=== PATIENT | male | born 1960 | race Caucasian/White ===

== ENCOUNTER 2017-08-29 08:39 | Inpatient (IN) | payer MEDICAID ==
[~2017-08-29] VITALS: Ht 177.8 cm; Wt 104.8 kg
[2017-08-29 09:57] VITALS: BP 92/60
[2017-08-29] MEDS ORDERED: FOL1 GT (10:06)
[2017-08-29] MEDS ORDERED: PEPCID20 MG GT (10:07)
[2017-08-29] MEDS ORDERED: ATRUD HHN (10:08)
[2017-08-29] MEDS ORDERED: MOM GT (10:09)
[2017-08-29] MEDS ORDERED: MULTI-VITAMINS1 TAB GT (10:10)
[2017-08-29] MEDS ORDERED: MODAFINIL200 M1 GT (10:10)
[2017-08-29] MEDS ORDERED: PHARMASSURE VI500 MG GT (10:11)
[2017-08-29] MEDS ORDERED: FLEET ENEMA135 ML RC (10:12)
[2017-08-29] MEDS ORDERED: DULCOLAX10 M1 RC (10:13)
[2017-08-29] MEDS ORDERED: COLACE100 MG GT (10:13)
[2017-08-29] MEDS ORDERED: NORCO1 TA2 GT (10:21)
[2017-08-29 10:33] LABS: UA SPECIFIC GRAVITY <=1.005 (1.005-1.035); microscopic required? YES; urine erythrocyte 1+ (NEGATIVE)
[2017-08-29 10:42] LABS: AMPHETAMINE QUAL UR NONE DETECTED (NEG <=1000)
[2017-08-29 11:41] LABS: T3 TOTAL 0.35 ng/mL
[2017-08-29 11:59] LABS: MAGNESIUM 3.4 mg/dL (1.8-2.4); PHOSPHOROUS 3.2 mg/dL (2.5-4.9)
[2017-08-29 12:01] LABS: CHOLESTEROL/HDL RATIO 4.5
[2017-08-29 12:30] VITALS: BP 85/62
[2017-08-29 12:34] LABS: FREE T4 1.1 ng/dL (0.76-1.46); FREE THYROXINE INDEX 2.6 ug/dL (1.4-4.5); T4(THYROXINE) 6.6 ug/dL (4.7-13.3)
[2017-08-29 12:54] LABS: BILIRUBIN TOTAL 0.47 mg/dL (0.20-1.00); CALCIUM 8.3 mg/dL (8.5-10.1); CARBON DIOXIDE 25.3 mmol/L (21-32); CREATININE SERUM 3.1 mg/dL (0.7-1.3); POTASSIUM SERUM 5.5 mmol/L (3.5-5.1); TOTAL PROTEIN, SERUM 7.1 g/dL (6.4-8.2)
[2017-08-29 12:56] LABS: ALBUMIN 1.8 g/dL (3.4-5.0)
[2017-08-29 14:10] VITALS: BP 85/62
[2017-08-29 16:00] VITALS: BP 92/56
[2017-08-29 19:30] VITALS: BP 98/65
[2017-08-29 23:53] VITALS: BP 91/59
[2017-08-30 03:17] VITALS: BP 82/56
[2017-08-30 06:14] LABS: BASOPHIL % 0.2 % (0-2); PLATELET COUNT 79 x10^3mcL (130-400); RED CELL DISTRIBUTION WIDTH 16.5 % (11.5-14.5)
[2017-08-30 06:17] LABS: CALCIUM 8.3 mg/dL (8.5-10.1); CARBON DIOXIDE 23.3 mmol/L (21-32); CREATININE SERUM 2.7 mg/dL (0.7-1.3); MAGNESIUM 3.1 mg/dL (1.8-2.4); PHOSPHOROUS 4.1 mg/dL (2.5-4.9)
[2017-08-30 08:15] VITALS: BP 92/55
[2017-08-30 11:00] VITALS: BP 95/60
[2017-08-30 15:20] VITALS: BP 95/55
[2017-08-30 19:37] LABS: CALCIUM 7.9 mg/dL (8.5-10.1); CARBON DIOXIDE 24.6 mmol/L (21-32); CREATININE SERUM 2.4 mg/dL (0.7-1.3); POTASSIUM SERUM 3.2 mmol/L (3.5-5.1)
[2017-08-30 19:50] VITALS: BP 90/68
[2017-08-30 23:50] VITALS: BP 91/57
[2017-08-31 03:55] VITALS: BP 87/55
[2017-08-31 05:48] LABS: BASOPHIL % 0.3 % (0-2); PLATELET COUNT 68 x10^3mcL (130-400); RED CELL DISTRIBUTION WIDTH 15.9 % (11.5-14.5)
[2017-08-31 05:50] LABS: CALCIUM 8.2 mg/dL (8.5-10.1); CARBON DIOXIDE 25.6 mmol/L (21-32); CREATININE SERUM 2.2 mg/dL (0.7-1.3); MAGNESIUM 2.6 mg/dL (1.8-2.4); PHOSPHOROUS 3.4 mg/dL (2.5-4.9); POTASSIUM SERUM 3.4 mmol/L (3.5-5.1); rbc morphology (normal/abnorm) ABNORMAL (NORMAL)
[2017-08-31 07:30] VITALS: BP 103/63
[2017-08-31 12:41] LABS: BASOPHIL % 0.2 % (0-2)
[2017-08-31 12:44] LABS: PLATELET COUNT 50 x10^3mcL (130-400); RED CELL DISTRIBUTION WIDTH 15.8 % (11.5-14.5)
[2017-08-31 15:29] LABS: BASOPHIL % 0.3 % (0-2)
[2017-08-31 15:30] VITALS: BP 94/61
[2017-08-31 15:53] LABS: PLATELET COUNT 51 x10^3mcL (130-400); RED CELL DISTRIBUTION WIDTH 15.5 % (11.5-14.5)
[2017-08-31 18:31] LABS: rbc morphology (normal/abnorm) ABNORMAL (NORMAL)
[2017-08-31 19:35] VITALS: BP 110/62
[2017-08-31 23:41] VITALS: BP 97/62
[2017-09-01 03:18] VITALS: BP 92/66
[2017-09-01 05:39] LABS: CALCIUM 7.9 mg/dL (8.5-10.1); CARBON DIOXIDE 23.3 mmol/L (21-32); CREATININE SERUM 1.9 mg/dL (0.7-1.3); POTASSIUM SERUM 3.2 mmol/L (3.5-5.1)
[2017-09-01 05:43] LABS: BASOPHIL % 0.2 % (0-2)
[2017-09-01 05:44] LABS: PLATELET COUNT 50 x10^3mcL (130-400); RED CELL DISTRIBUTION WIDTH 15.3 % (11.5-14.5)
[2017-09-01 05:48] LABS: rbc morphology (normal/abnorm) ABNORMAL (NORMAL)
[2017-09-01 08:27] VITALS: BP 97/57
[2017-09-01 11:14] VITALS: BP 90/55
[2017-09-01 15:47] VITALS: BP 94/64
[2017-09-01 19:15] VITALS: BP 94/59
[2017-09-01 23:28] VITALS: BP 92/59
[2017-09-02] VITALS (8 sets, daily range): BP systolic 92–109; BP diastolic 57–72
[2017-09-02 05:22] LABS: CALCIUM 8.1 mg/dL (8.5-10.1); CARBON DIOXIDE 23.3 mmol/L (21-32); CREATININE SERUM 1.7 mg/dL (0.7-1.3); POTASSIUM SERUM 3.6 mmol/L (3.5-5.1)
[2017-09-02 05:23] LABS: BASOPHIL % 0.2 % (0-2)
[2017-09-02 05:39] LABS: RED CELL DISTRIBUTION WIDTH 15.6 % (11.5-14.5)
[2017-09-02 06:01] LABS: rbc morphology (normal/abnorm) ABNORMAL (NORMAL)
[2017-09-02 06:15] LABS: PLATELET COUNT 49 x10^3mcL (130-400)
[2017-09-02 19:15] LABS: BASOPHIL % 0.2 % (0-2)
[2017-09-02 19:22] LABS: RED CELL DISTRIBUTION WIDTH 15.5 % (11.5-14.5)
[2017-09-02 19:23] LABS: PLATELET COUNT 46 x10^3mcL (130-400)
[2017-09-03] VITALS (8 sets, daily range): BP systolic 85–103; BP diastolic 55–69
[2017-09-03 06:06] LABS: CALCIUM 7.8 mg/dL (8.5-10.1); CARBON DIOXIDE 22.7 mmol/L (21-32); CREATININE SERUM 1.6 mg/dL (0.7-1.3); MAGNESIUM 1.8 mg/dL (1.8-2.4); PHOSPHOROUS 3.8 mg/dL (2.5-4.9); POTASSIUM SERUM 3.2 mmol/L (3.5-5.1)
[2017-09-03 06:07] LABS: PLATELET COUNT 56 x10^3mcL (130-400); RED CELL DISTRIBUTION WIDTH 15.6 % (11.5-14.5)
[2017-09-03 07:57] LABS: BAND NEUTROPHIL 9 % (0-10); BASOPHIL 0 % (0-2); METAMYELOCTE 1 % (0-2); MONOCYTE 3 % (0-7); SEGMENTED NEUTROPHILS 78 % (37-75)
[2017-09-03 08:01] LABS: PLATELET MORPHOLOGY PLATELETS DECREASED; rbc morphology (normal/abnorm) ABNORMAL (NORMAL)
[2017-09-04] VITALS (7 sets, daily range): BP systolic 83–109; BP diastolic 53–61
[2017-09-04 07:01] LABS: CALCIUM 7.7 mg/dL (8.5-10.1); CARBON DIOXIDE 22.3 mmol/L (21-32); CREATININE SERUM 1.6 mg/dL (0.7-1.3); MAGNESIUM 1.7 mg/dL (1.8-2.4); PHOSPHOROUS 3.6 mg/dL (2.5-4.9)
[2017-09-04 07:09] LABS: BASOPHIL % 0.1 % (0-2)
[2017-09-04 07:10] LABS: RED CELL DISTRIBUTION WIDTH 15.1 % (11.5-14.5)
[2017-09-04 08:59] LABS: PLATELET COUNT 39 x10^3mcL (130-400); rbc morphology (normal/abnorm) ABNORMAL (NORMAL)
[2017-09-05] VITALS (7 sets, daily range): BP systolic 90–128; BP diastolic 44–61
[2017-09-05 06:13] LABS: CALCIUM 7.8 mg/dL (8.5-10.1); CARBON DIOXIDE 20.8 mmol/L (21-32); CREATININE SERUM 1.6 mg/dL (0.7-1.3); MAGNESIUM 1.6 mg/dL (1.8-2.4); POTASSIUM SERUM 4.1 mmol/L (3.5-5.1)
[2017-09-05 07:08] LABS: BASOPHIL % 0.4 % (0-2)
[2017-09-05 07:13] LABS: PLATELET COUNT 43 x10^3mcL (130-400); RED CELL DISTRIBUTION WIDTH 14.7 % (11.5-14.5)
[2017-09-05 08:35] LABS: rbc morphology (normal/abnorm) ABNORMAL (NORMAL)
[2017-09-06] VITALS (8 sets, daily range): BP systolic 91–131; BP diastolic 56–84
[2017-09-06 06:42] LABS: CALCIUM 7.7 mg/dL (8.5-10.1); CARBON DIOXIDE 22.6 mmol/L (21-32); CREATININE SERUM 1.4 mg/dL (0.7-1.3); MAGNESIUM 1.6 mg/dL (1.8-2.4); PHOSPHOROUS 3.2 mg/dL (2.5-4.9)
[2017-09-06 06:49] LABS: BASOPHIL % 0.4 % (0-2); RED CELL DISTRIBUTION WIDTH 14.4 % (11.5-14.5)
[2017-09-06 07:09] LABS: PLATELET COUNT 56 x10^3mcL (130-400)
[2017-09-06 09:29] LABS: rbc morphology (normal/abnorm) ABNORMAL (NORMAL)
[2017-09-06 21:55] LABS: BASOPHIL % 0.3 % (0-2)
[2017-09-06 21:58] LABS: RED CELL DISTRIBUTION WIDTH 15.4 % (11.5-14.5)
[2017-09-06 21:59] LABS: PLATELET COUNT 68 x10^3mcL (130-400)
[2017-09-07 02:43] LABS: BASOPHIL % 0.3 % (0-2)
[2017-09-07 02:47] LABS: PLATELET COUNT 64 x10^3mcL (130-400)
[2017-09-07 06:13] VITALS: BP 109/76
[2017-09-07 07:06] LABS: CALCIUM 7.9 mg/dL (8.5-10.1); CARBON DIOXIDE 23.6 mmol/L (21-32); CHLORIDE SERUM 113 mmol/L (98-107); CREATININE SERUM 1.2 mg/dL (0.7-1.3); GFR1 > 60 mL/min; GLUCOSE SERUM 78 mg/dL (74-106); MAGNESIUM 1.6 mg/dL (1.8-2.4); PHOSPHOROUS 2.7 mg/dL (2.5-4.9); POTASSIUM SERUM 4.4 mmol/L (3.5-5.1); SODIUM SERUM 145 mmol/L (136-145)
[2017-09-07 07:08] LABS: BASOPHIL % 0.4 % (0-2); PLATELET COUNT 86 x10^3mcL (130-400)
[2017-09-07 09:00] VITALS: BP 123/78
[2017-09-07 14:03] VITALS: BP 122/77
[2017-09-07 18:11] VITALS: BP 96/54
[2017-09-07 20:27] VITALS: BP 109/59
[2017-09-08] VITALS (8 sets, daily range): BP systolic 93–123; BP diastolic 62–78
[2017-09-08 06:15] LABS: BASOPHIL % 0.2 % (0-2)
[2017-09-08 06:23] LABS: CARBON DIOXIDE 23.8 mmol/L (21-32); CHLORIDE SERUM 115 mmol/L (98-107); CREATININE SERUM 1.1 mg/dL (0.7-1.3); GFR1 > 60 mL/min; GLUCOSE SERUM 92 mg/dL (74-106); POTASSIUM SERUM 3.8 mmol/L (3.5-5.1); SODIUM SERUM 149 mmol/L (136-145)
[2017-09-08 07:04] LABS: PLATELET COUNT 82 x10^3mcL (130-400); RED CELL DISTRIBUTION WIDTH 15.3 % (11.5-14.5)
[2017-09-08 21:21] LABS: PLATELET COUNT 198 x10^3mcL (130-400)
[2017-09-08 21:35] LABS: RED CELL DISTRIBUTION WIDTH 15.3 % (11.5-14.5)
[2017-09-08 22:16] LABS: BAND NEUTROPHIL 4 % (0-10); BASOPHIL 0 % (0-2); MONOCYTE 1 % (0-7); SEGMENTED NEUTROPHILS 85 % (37-75)
[2017-09-08 22:17] LABS: rbc morphology (normal/abnorm) ABNORMAL (NORMAL)
[2017-09-09] VITALS (8 sets, daily range): BP systolic 89–122; BP diastolic 58–82; Ht 177.8 cm; Wt 104.8 kg
[2017-09-09 08:35] LABS: BASOPHIL % 0.2 % (0-2); PLATELET COUNT 237 x10^3mcL (130-400); RED CELL DISTRIBUTION WIDTH 15.6 % (11.5-14.5)
[2017-09-09 09:03] LABS: ALKALINE PHOSPHATASE 87 U/L (46-116); ALT/SGPT 14 U/L (16-63); AST/SGOT 19 U/L (15-37); BILIRUBIN TOTAL 0.61 mg/dL (0.20-1.00); CALCIUM 7.8 mg/dL (8.5-10.1); CARBON DIOXIDE 20.4 mmol/L (21-32); CHLORIDE SERUM 116 mmol/L (98-107); CREATININE SERUM 1.1 mg/dL (0.7-1.3); GFR1 > 60 mL/min; GLUCOSE SERUM 101 mg/dL (74-106); POTASSIUM SERUM 3.5 mmol/L (3.5-5.1); SODIUM SERUM 148 mmol/L (136-145); TOTAL PROTEIN, SERUM 6.4 g/dL (6.4-8.2)
[2017-09-09 09:04] LABS: ALBUMIN 1.6 g/dL (3.4-5.0)
[2017-09-10 05:10] VITALS: BP 99/60
[2017-09-10 06:53] LABS: CARBON DIOXIDE 25.1 mmol/L (21-32); CHLORIDE SERUM 118 mmol/L (98-107); CREATININE SERUM 1.1 mg/dL (0.7-1.3); GFR1 > 60 mL/min; GLUCOSE SERUM 137 mg/dL (74-106); POTASSIUM SERUM 3.3 mmol/L (3.5-5.1); SODIUM SERUM 151 mmol/L (136-145)
[2017-09-10 06:57] LABS: BASOPHIL % 0.4 % (0-2); PLATELET COUNT 206 x10^3mcL (130-400)
[2017-09-10 09:08] VITALS: BP 103/64
[2017-09-10 13:52] VITALS: BP 102/51; BP 95/62
[2017-09-10 17:42] VITALS: BP 93/58
[2017-09-10 21:24] VITALS: BP 88/54
[2017-09-11 06:33] VITALS: BP 108/68
[2017-09-11 07:16] LABS: BASOPHIL % 0.3 % (0-2); PLATELET COUNT 301 x10^3mcL (130-400)
[2017-09-11 07:18] LABS: RED CELL DISTRIBUTION WIDTH 16.3 % (11.5-14.5)
[2017-09-11 07:35] LABS: CALCIUM 8.1 mg/dL (8.5-10.1); CARBON DIOXIDE 22.3 mmol/L (21-32); CHLORIDE SERUM 118 mmol/L (98-107); CREATININE SERUM 1.1 mg/dL (0.7-1.3); GFR1 > 60 mL/min; GLUCOSE SERUM 139 mg/dL (74-106); MAGNESIUM 1.6 mg/dL (1.8-2.4); PHOSPHOROUS 2.7 mg/dL (2.5-4.9); POTASSIUM SERUM 3.7 mmol/L (3.5-5.1); SODIUM SERUM 150 mmol/L (136-145)
[2017-09-11 08:00] VITALS: BP 93/67
[2017-09-11 09:22] VITALS: BP 108/68
[2017-09-11 13:48] VITALS: BP 118/76
[2017-09-11 17:01] VITALS: BP 108/80
[2017-09-11 20:39] VITALS: BP 122/87
[2017-09-12 06:18] LABS: BASOPHIL % 0.2 % (0-2); PLATELET COUNT 332 x10^3mcL (130-400)
[2017-09-12 06:28] VITALS: BP 140/84
[2017-09-12 06:35] LABS: CALCIUM 7.9 mg/dL (8.5-10.1); CARBON DIOXIDE 27.3 mmol/L (21-32); CHLORIDE SERUM 118 mmol/L (98-107); GFR1 > 60 mL/min; GLUCOSE SERUM 154 mg/dL (74-106); MAGNESIUM 1.5 mg/dL (1.8-2.4); PHOSPHOROUS 2.6 mg/dL (2.5-4.9); POTASSIUM SERUM 4.1 mmol/L (3.5-5.1); SODIUM SERUM 150 mmol/L (136-145)
[2017-09-12 06:40] LABS: RED CELL DISTRIBUTION WIDTH 16.4 % (11.5-14.5)
[2017-09-12 08:00] VITALS: BP 123/81
[2017-09-12 14:13] VITALS: BP 125/82
[2017-09-12 16:05] VITALS: BP 125/82
[2017-09-12 17:50] VITALS: BP 98/62
== END 2017-09-12 18:31 | DRG 710 ==
LOC: IC 08:39 → DU 08:39 → IC 18:15 → DU 09-03 15:23 → MU 09-08 09:29 → DU 09-08 23:57 → IC 09-09 01:15 → DU 09-09 23:42
PROVIDERS: Family Medicine; Family Medicine Sports Medicine; Surgery; ADMIT Family Medicine
PROC: 06H03DZ Insertion of Intraluminal Device into Inferior Vena Cava, Percutaneous Approach (ICD-10-PCS; 2017-08-29)
PROC: 06HN33Z Insertion of Infusion Device into Left Femoral Vein, Percutaneous Approach (ICD-10-PCS; 2017-08-29)
PROC: 0JB70ZZ Excision of Back Subcutaneous Tissue and Fascia, Open Approach (ICD-10-PCS; principal; 2017-08-31 08:00)
PROC: 0D1N0Z4 Bypass Sigmoid Colon to Cutaneous, Open Approach (ICD-10-PCS; 2017-09-08)
DX: A41.9 Sepsis, unspecified organism (principal); N17.0 Acute kidney failure with tubular necrosis; R65.21 Severe sepsis with septic shock; G82.50 Quadriplegia, unspecified; E43 Unspecified severe protein-calorie malnutrition; I50.43 Acute on chronic combined systolic (congestive) and diastolic (congestive) heart failure; L89.154 Pressure ulcer of sacral region, stage 4; D68.69 Other thrombophilia; E11.21 Type 2 diabetes mellitus with diabetic nephropathy; L89.323 Pressure ulcer of left buttock, stage 3; E87.0 Hyperosmolality and hypernatremia; Q43.8 Other specified congenital malformations of intestine; E11.51 Type 2 diabetes mellitus with diabetic peripheral angiopathy without gangrene; E11.65 Type 2 diabetes mellitus with hyperglycemia; L97.421 Non-pressure chronic ulcer of left heel and midfoot limited to breakdown of skin; E11.621 Type 2 diabetes mellitus with foot ulcer; N39.0 Urinary tract infection, site not specified; E87.6 Hypokalemia; D69.59 Other secondary thrombocytopenia; E83.41 Hypermagnesemia; I42.2 Other hypertrophic cardiomyopathy; K31.89 Other diseases of stomach and duodenum; K72.90 Hepatic failure, unspecified without coma; R15.9 Full incontinence of feces; G47.419 Narcolepsy without cataplexy; R80.9 Proteinuria, unspecified; E87.8 Other disorders of electrolyte and fluid balance, not elsewhere classified; Q54.1 Hypospadias, penile; Z93.1 Gastrostomy status; I69.320 Aphasia following cerebral infarction; Z68.32 Body mass index [BMI] 32.0-32.9, adult; Z79.84 Long term (current) use of oral hypoglycemic drugs
CPT/HCPCS: 82962; 83880; 84439; 90658; 90732; C1760; C1769; C1773; C1880; C1894; C9113; J0330; J1450; J1580; J1644; J1815; J1940; J2001; J2020; J2185; J2250; J2270; J2405; J2543; J2704; J2710; J2765; J3010; J3475; J3490; J7030; J7040; J7042; J7050; J7070; J7620; P9016; P9035; P9045; Q0092; Q0163; Q9967